=== PATIENT | male | born 1965 | race African-American/Black ===

== ENCOUNTER 2021-10-14 16:05 | Emergency (ER) | payer OTHER ==
[~2021-10-14] VITALS: Ht 165.1 cm; Wt 74.4 kg
[2021-10-14 16:07] VITALS: BP 140/90
[2021-10-14] MEDS ORDERED: KETOROLAC TROMETH 60MG/2ML VIAL IM ONE (17:30)
[2021-10-14] MEDS ORDERED: METH750T22 PO (18:09)
[2021-10-14] MEDS ORDERED: IBUP800T27 PO (18:09)
== END 2021-10-14 18:17 | disposition home or self-care (01) ==
LOC: ER 16:07
DX: S39.012A Strain of muscle, fascia and tendon of lower back, initial encounter (principal); I10 Essential (primary) hypertension; J45.909 Unspecified asthma, uncomplicated; Z79.1 Long term (current) use of non-steroidal anti-inflammatories (NSAID); Z79.899 Other long term (current) drug therapy; W01.0XXA Fall on same level from slipping, tripping and stumbling without subsequent striking against object, initial encounter; Y93.89 Activity, other specified; Y92.89 Other specified places as the place of occurrence of the external cause; Y99.0 Civilian activity done for income or pay
CPT/HCPCS: 72100; 93005; 96372; 99283; J1885

== ENCOUNTER 2023-09-08 09:13 | Emergency (ER) | payer MEDICAID, OTHER ==
[~2023-09-08] VITALS: Ht 165.1 cm; Wt 73.5 kg
[~2023-09-08 09:13] MED LIST: CYCL-839 PO; IBUP-1454 PO
[2023-09-08 09:18] VITALS: BP 163/115; PULSE 88; RESP 18; O2SAT 96
[2023-09-08] MEDS ORDERED: MELO7.5T7 PO (10:26)
== END 2023-09-08 11:54 | disposition home or self-care (01) ==
LOC: ER 09:13
DX: M54.50 Low back pain, unspecified (principal); M25.512 Pain in left shoulder; Z79.1 Long term (current) use of non-steroidal anti-inflammatories (NSAID); Z79.899 Other long term (current) drug therapy; W01.0XXA Fall on same level from slipping, tripping and stumbling without subsequent striking against object, initial encounter; Y93.89 Activity, other specified; Y92.89 Other specified places as the place of occurrence of the external cause; Y99.8 Other external cause status
CPT/HCPCS: 73010